=== PATIENT | male | born 1940 | race Caucasian/White ===

== ENCOUNTER 2024-02-21 10:32 | Emergency (ER) | payer MEDICARE, OTHER, SELFPAY ==
[2024-02-21 10:39] VITALS: BP 147/47; PULSE 87; RESP 20; TEMP 36.7; O2SAT 100
[2024-02-21 14:13] VITALS: BP 133/63; PULSE 62; RESP 16; O2SAT 100
--- NOTE | 2024-02-21 14:19 | ED.RECABL ---
HPI - Recheck/Abnormal Lab/Rx General Chief Complaint: Recheck/Abnormal Lab/Rx Stated Complaint: low H&H Time Seen by Provider: 02/21/24 14:09 History of Present Illness HPI narrative: This is an 83-year-old male with a past medical history significant for chronic anemia, pacemaker placement, chronic back pain. Today patient presents to the emergency department for re-evaluation of abnormal laboratory studies. He underwent a normal 6 month evaluation at the [facility] and he had blood drawn that showed he had anemia of 7.5. He was told he had a previous low hemoglobin but was not clear with the baseline level was. He was referred back to the hospital for evaluation. He waited in the [facility] yesterday for several hours. He had a blood draw but was not able to see a provider. Hemoglobin at that time was 7.4. He presents today for evaluation. He denies any pain anywhere specially in the abdomen or back. No chest pain, shortness a breath. No dark stools no tarry stools, no blood red blood per rectum or from urination. He is aware he has a history of anemia but does not take any kind of iron supplementations or remember any kind of workup for this in the past. He is asymptomatic presently which is reassuring. No recent endoscopies colonoscopies. No recent hospital visits or illnesses. He only follows up every 6 months at the [facility] otherwise has been healthy. Related Data Allergies Allergy/AdvReac Type Severity Reaction Status Date / Time Penicillins Allergy Hives Verified 02/21/24 10:43 Review of Systems Review of Systems: As reviewed above in the HPI Exam Narrative: GENERAL: [Well-appearing, well-nourished, and in no acute distress.] HEAD: [Normocephalic, atraumatic.] EYES: [PERRLA and EOMI.] Some conjunctiva pallor ENT: Nares clear, no rhinorrhea or epistaxis. Mucous membranes moist. NECK: Supple. CHEST: [Clear to auscultation. No respiratory distress.] HEART: [Regular rate and rhythm]. No murmur heard. [Normal peripheral pulses.] ABDOMEN: [Soft, nondistended], [nontender], [No rigidity or guarding] EXTREMITIES: Normal range of motion. [No edema.] SKIN: Warm, dry, no rash. NEURO: [No focal deficits]. Alert and oriented [x3.] PSYCH: [Normal mood and affect.] Course Vital Signs Vital signs: Vital Signs Temperature 36.7 C 02/21/24 10:39 Pulse Rate 87 02/21/24 10:39 Respiratory Rate 20 02/21/24 10:39 Blood Pressure 147/47 H 02/21/24 10:39 Pulse Oximetry 100 02/21/24 10:39 Oxygen Delivery Room Air 02/21/24 10:39 Temperature 36.7 C 02/21/24 10:39 Pulse Rate 62 02/21/24 14:13 Respiratory Rate 16 02/21/24 14:13 Blood Pressure 133/63 02/21/24 14:13 Pulse Oximetry 100 02/21/24 14:13 Oxygen Delivery Room Air 02/21/24 10:39 MDM - Recheck/Abnormal Lab/Rx MDM Narrative Medical decision making narrative: 83-year-old male with history of chronic anemia, chronic back pain, pacemaker placement. Presenting for repeat blood draw. Was told by his [facility] he had a low hemoglobin of 7.5 and need a repeat evaluation. He went to the [facility] yesterday but was waiting significantly long in the ER so he left without being seen by provider. He did have blood drawn at that time and was reported to be at 7.4. He has a history of baseline anemia and denies any source of blood loss at this time. No dark tarry stools, no black stools, no bright red blood per rectum or urinary tract. No pain in the abdomen her back presently. Was otherwise in his normal state of health. Has normal reassuring vital signs without any tachycardia, hypertension, hypotension, fever or hypoxia. Soft nontender nondistended abdomen. At this time we will repeat a CBC and electrolyte panel to make sure that he is stable from anemia standpoint and he would not require any further interventions if his hemoglobin is remaining within range other than outpatient follow-up. Patient is pres
[2024-02-21 14:24] LABS: Basophils Absolute Auto 0.1 K/mm3 (0.0-0.1); Basophils Percent Auto 0.7 % (0.2-1.2); Eosinophils Absolute Auto 0.1 K/mm3 (0-0.3); Eosinophils Percent Auto 1.6 % (0-4.4); Hematocrit 27.9 % (42.0-52.0); Hemoglobin 7.8 g/dL (14.0-18.0); Immature Granulocyte Absolute 0.02 K/mm3 (0.00-0.031); Immature Granulocyte Percent A 0.3 % (0-0.5); Immature Platelet Fraction Pct 12.3 % (0.9-11.2); Lymphocytes Absolute Auto 1.31 K/mm3 (0.9-3.2); Lymphocytes Percent Auto 17.9 % (18.3-44.2); Mean Corpuscular Volume 57.4 fl (80-100); Neutrophils Absolute Auto 4.8 K/mm3 (1.3-6.7); Neutrophils Percent Auto 65.5 % (45.5-73.1); Platelet Count Result 189 k/mm3 (150-375); Red Blood Count 4.86 M/mm3 (4.6-6.20); Red Cell Distribution Width 22.5 % (11.5-14.5); White Blood Count 7.3 K/mm3 (4.5-10.0)
[2024-02-21 14:32] LABS: Alanine Aminotransferase 22 U/L (6-50); Albumin Level 4.2 g/dL (3.5-5.1); Alkaline Phosphatase 84 U/L (38-126); Anion Gap 8 mmol/L (4-12); Aspartate Amino Transferase 22 U/L (17-59); Bilirubin,Total 0.3 mg/dL (0.2-1.3); Blood Urea Nitrogen 32 mg/dL (9-20); Carbon Dioxide 27 mmol/L (22-30); Chloride 104 mmol/L (98-107); Estimated CRCL calculation 37 ml/min; Estimated Glomerular Filt Rate 48; Glucose 160 mg/dL (65-110); Magnesium 2.4 mg/dL (1.6-2.3); Potassium 4.6 mmol/L (3.4-5.0); Sodium 139 mmol/L (137-145)
[2024-02-21 15:15] LABS: Platelet Estimate Adequate (Adequate)
[2024-02-21 15:16] LABS: Anisocytosis 3+; Hypochromasia 1+; Microcytosis 2+ (NORMAL); Schistocytes None Seen
[2024-02-21 16:53] VITALS: BP 102/57; PULSE 66; RESP 14; TEMP 36.6; O2SAT 100
== END 2024-02-21 16:55 | disposition home or self-care (01) ==
PROVIDERS: Emergency Medicine; Emergency Provider Student in an Organized Health Care Education/Training Program
DX: D64.9 Anemia, unspecified (principal); M54.9 Dorsalgia, unspecified; G89.29 Other chronic pain; Z95.0 Presence of cardiac pacemaker
CPT/HCPCS: 36415; 80053; 83735; 85025; 85055; 86850; 86900; 86901; 99283